=== PATIENT | male | born 1995 | race Caucasian/White ===

== ENCOUNTER 2021-05-06 12:44 | Emergency (ER) | payer BC, OTHER ==
[~2021-05-06 12:44] MED LIST: MEDROL DOSEPAK 24 MG PO; TESSALON PERLE100 MG PO; VENTOLIN HFA 66.7 GM INH
[2021-05-06] MEDS ORDERED: AUGMENTIN 875-1 EACH PO (14:38)
== END 2021-05-06 15:15 | disposition home or self-care (01) ==
LOC: ER1 12:44
DX: J02.9 Acute pharyngitis, unspecified (principal); R59.0 Localized enlarged lymph nodes; J45.909 Unspecified asthma, uncomplicated; Z88.2 Allergy status to sulfonamides
CPT/HCPCS: 96372; 99283; J1100